=== PATIENT | female | born 1975 | race African-American/Black ===

== ENCOUNTER 2016-09-01 14:19 | Emergency (ER) | payer MEDICARE ==
[2014-12-29 11:01] VITALS: BMI 35.3
[~2016-09-01 14:19] MED LIST: ASPIRIN325 MG PO; CLONAZEPAM2 MG/TAB PO; HYDROCODON-ACE1 EAC7 PO; IBUPROFEN800 MG PO; KLONOPIN0.5 MG PO; KLONOPIN1 MG PO; LATUDA40 MG PO; NICODERM C1 PATCH .1 TRANSDERM; NORVASC2.5 MG PO; PRAVACHOL20 MG PO; SYNTHROID100 MCG PO; TOPAMAX100 MG PO; TRANDATE100 MG PO; ZESTRIL40 MG PO
== END 2016-09-01 16:47 | disposition home or self-care (01) ==
LOC: D.ER 14:19
DX: G89.29 Other chronic pain (principal); F12.10 Cannabis abuse, uncomplicated; F17.200 Nicotine dependence, unspecified, uncomplicated; Z86.73 Personal history of transient ischemic attack (TIA), and cerebral infarction without residual deficits; I10 Essential (primary) hypertension; K21.9 Gastro-esophageal reflux disease without esophagitis; E87.6 Hypokalemia; E03.9 Hypothyroidism, unspecified; N28.9 Disorder of kidney and ureter, unspecified; M26.609 Unspecified temporomandibular joint disorder, unspecified side

== ENCOUNTER 2016-09-11 06:22 | Emergency (ER) | payer MEDICARE ==
[2014-12-29 11:01] VITALS: BMI 35.3
== END 2016-09-11 07:50 | disposition home or self-care (01) ==
LOC: D.ER 06:22
DX: B85.3 Phthiriasis (principal); M79.605 Pain in left leg; M79.604 Pain in right leg; Z86.73 Personal history of transient ischemic attack (TIA), and cerebral infarction without residual deficits; I10 Essential (primary) hypertension; E87.6 Hypokalemia; E03.9 Hypothyroidism, unspecified; M26.609 Unspecified temporomandibular joint disorder, unspecified side; F17.200 Nicotine dependence, unspecified, uncomplicated

== ENCOUNTER 2017-01-31 12:29 | Emergency (ER) | payer MEDICARE ==
[2014-12-29 11:01] VITALS: BMI 35.3
== END 2017-01-31 16:23 | disposition home or self-care (01) ==
LOC: D.ER 12:29
DX: M25.512 Pain in left shoulder (principal); M19.90 Unspecified osteoarthritis, unspecified site; I10 Essential (primary) hypertension; G89.29 Other chronic pain; E03.9 Hypothyroidism, unspecified

== ENCOUNTER 2017-03-21 11:08 | Day surgery (SDC) | payer MEDICARE ==
[~2017-03-21] VITALS: Ht 160 cm; Wt 85.3 kg
[~2017-03-21 11:08] MED LIST changes: +LYRICA225 MG PO; +NORMODYNE / TR100 MG PO
[2017-03-21 12:24] VITALS: BP 121/98; Ht 160 cm; Wt 85.3 kg
[2017-03-21 12:31] LABS: BASOPHILS 0.5 % (0-2); EOSINOPHILS 1.2 % (0-7); HEMATOCRIT 36.7 % (36.0-48.0); IMMATURE GRANULOCYTES 0.2 % (0-5); LYMPHOCYTES 31.2 % (15-50); MCH 25.9 pg (26.0-34.0); MCHC 32.7 g/dL (31.0-37.0); MCV 79.1 fL (80.0-100.0); MEAN PLATELET VOLUME 10.4 fL (7.4-10.4); NEUTROPHILS 56.9 % (40-80); RBC 4.64 10x6/uL (4.00-5.40); WBC 4.3 10x3/uL (4.8-10.8)
[2017-03-21 12:47] LABS: PLATELET COUNT 242 10x3/uL (130-400)
--- NOTE | 2017-03-21 14:26 | NUR ---
14OO PT ASKED WHEN SURGERY IS, WHAT IS THE DELAY? 1415 JC LEIGH RN SPOKE WITH PT. AFTER SPEAKING WITH PT. PT. HAS CHOSEN TO CANCELL SURGERY FOR TODAY DUE TO THE TIME FRAME BEING STILL A WAYS OFF AND HER SPOUSE NEEDING TO GO TO WORK LATER AND NEEDING TO GO HOME TO REST BEFORE WORK, PT. STATED SHE SHOULD HAVE BEEN AN EARLIER SURGERY. 1422 IV DC'D WITH CATH INTACT, DC INSTS GIVEN, GETTING DRESSED 1430 DECLINED OFFER OF WC.
== END 2017-03-21 14:30 | disposition home or self-care (01) ==
LOC: D.OPS 11:08 → D.PAN 12:45 → D.OPS 12:45
PROVIDERS: Anesthesiology
DX: D50.9 Iron deficiency anemia, unspecified (principal); I10 Essential (primary) hypertension; E03.9 Hypothyroidism, unspecified; Z01.810 Encounter for preprocedural cardiovascular examination; Z01.811 Encounter for preprocedural respiratory examination; Z01.812 Encounter for preprocedural laboratory examination; Z53.9 Procedure and treatment not carried out, unspecified reason

== ENCOUNTER → 2017-04-26 15:35 | Outpatient (CLI) | payer MEDICARE ==
[2017-03-21 12:24] VITALS: BMI 33.3
[~2017-04-26 15:35] MED LIST changes: +ADDERALL 30 MG30 MG PO; +MOBIC7.5 MG PO
[2017-04-26 16:23] LABS: BASOPHILS 0.3 % (0-2); EOSINOPHILS 0.8 % (0-7); HEMATOCRIT 32.6 % (36.0-48.0); HEMOGLOBIN 10.7 g/dL (12-16); LYMPHOCYTES 37.3 % (15-50); MCH 26.5 pg (26.0-34.0); MCHC 32.8 g/dL (31.0-37.0); MCV 80.7 fL (80.0-100.0); MONOCYTES 7.3 % (2-11); NEUTROPHILS 54.3 % (40-80); PLATELET COUNT 272 10x3/uL (130-400); RBC 4.04 10x6/uL (4.00-5.40); RDW 19.2 % (11.5-14.5)
[2017-04-26 16:56] LABS: THYROID STIMULATING HORMONE 1.35 uIU/mL (0.36-3.74); URIC ACID 4.2 mg/dL (2.6-7.2)
[2017-04-26 17:00] LABS: C-REACTIVE PROTEIN < 0.2 mg/dL (0.0-0.9)
[2017-04-26 17:26] LABS: ERYTHROCYTE SEDIMENTATION RATE 20 mm/hr (0-20)
[2017-04-28 05:14] LABS: ESTRADIOL 87.1 pg/mL (()); FOLLICLE STIMULATING HORMONE 5.4 mIU/mL (())
[2017-04-30 08:09] LABS: ANA REFLEX - ANTICHROMATIN ABS <0.2 AI (0.0-0.9); ANA REFLEX - CENTROMERE B ABS <0.2 AI (0.0-0.9); ANA REFLEX - DBL STRANDED DNA 3 IU/mL (0-9); ANA REFLEX - DIRECT Positive (Negative); ANA REFLEX - JO-1 AB <0.2 AI (0.0-0.9); ANA REFLEX - RNP ANTIBODIES <0.2 AI (0.0-0.9); ANA REFLEX - SCL-70 <0.2 AI (0.0-0.9); ANA REFLEX - SJOGRENS AB SSA >8.0 AI (0.0-0.9); ANA REFLEX - SJOGRENS AB SSB <0.2 AI (0.0-0.9); ANA REFLEX - SMITH AB <0.2 AI (0.0-0.9)
== END | disposition home or self-care (01) ==
LOC: D.LAB 15:35
DX: N92.5 Other specified irregular menstruation (principal); N92.6 Irregular menstruation, unspecified

== ENCOUNTER 2017-05-16 05:56 | Day surgery (SDC) | payer MEDICARE ==
[2017-05-15 10:43] LABS: BASOPHILS 0.4 % (0-2); EOSINOPHILS 1.9 % (0-7); HEMATOCRIT 31.9 % (36.0-48.0); HEMOGLOBIN 10.3 g/dL (12-16); LYMPHOCYTES 31.2 % (15-50); MCH 26.1 pg (26.0-34.0); MCHC 32.3 g/dL (31.0-37.0); MEAN PLATELET VOLUME 9.8 fL (7.4-10.4); MONOCYTES 9.8 % (2-11); NEUTROPHILS 56.7 % (40-80); PLATELET COUNT 230 10x3/uL (130-400); RBC 3.94 10x6/uL (4.00-5.40); RDW 16.6 % (11.5-14.5); WBC 5.2 10x3/uL (4.8-10.8)
[~2017-05-16] VITALS: Ht 160 cm; Wt 88.9 kg
[2017-05-16 06:30] VITALS: BP 96/69; Ht 160 cm; Wt 88.9 kg
[2017-05-16] MEDS ORDERED: HYDROCODON-ACE1 EAC7 PO (08:45)
== END 2017-05-16 09:40 | disposition home or self-care (01) ==
LOC: D.OPS 05:56 → D.PAN 08:00 → D.OPS 08:00
PROVIDERS: Anesthesiology
DX: D50.9 Iron deficiency anemia, unspecified (principal); Z98.84 Bariatric surgery status; Z01.812 Encounter for preprocedural laboratory examination

== ENCOUNTER 2017-07-19 14:58 | Emergency (ER) | payer MEDICARE ==
[2017-05-16 06:30] VITALS: BMI 34.8
== END 2017-07-19 17:40 | disposition home or self-care (01) ==
LOC: D.ER 14:58
DX: J44.9 Chronic obstructive pulmonary disease, unspecified (principal); N39.0 Urinary tract infection, site not specified; I10 Essential (primary) hypertension

== ENCOUNTER 2018-05-02 09:15 | Emergency (ER) | payer MEDICARE ==
[~2018-05-02] VITALS: Ht 160 cm; Wt 98.2 kg
[2018-05-02 09:23] VITALS: Ht 160 cm; Wt 98.2 kg
[2018-05-02 11:32] LABS: APPEARANCE CLEAR (CLEAR); COLOR YELLOW (YELLOW); NITRITE NEGATIVE (NEGATIVE); PROTEIN NEGATIVE (NEGATIVE)
[2018-05-02 11:33] LABS: BILIRUBIN NEGATIVE (NEGATIVE); GLUCOSE NEGATIVE (NEGATIVE); KETONE NEGATIVE (NEGATIVE); UROBILINOGEN NORMAL (NORMAL)
[2018-05-02 11:40] LABS: HCG URINE NEGATIVE (NEGATIVE)
[2018-05-02] MEDS ORDERED: DIFLUCAN150 MG PO (12:10)
[2018-05-02 12:12] LABS: HIV 1 & 2- RAPID SCREEN NEGATIVE (NEGATIVE)
[2018-05-02 13:35] VITALS: BP 132/93
[2018-05-03 09:16] LABS: HEPATITIS C ANTIBODY <0.1 S/CO RAT (0.0-0.9)
[2018-05-04 22:07] LABS: CHLAMYDIA TRACHOMATIS, NAA Negative (Negative)
== END 2018-05-02 13:00 | disposition home or self-care (01) ==
LOC: D.ER 09:15
PROVIDERS: Family Medicine
DX: Z20.2 Contact with and (suspected) exposure to infections with a predominantly sexual mode of transmission (principal); Z86.73 Personal history of transient ischemic attack (TIA), and cerebral infarction without residual deficits; I10 Essential (primary) hypertension

== ENCOUNTER → 2018-11-05 17:46 | Outpatient (CLI) | payer MEDICARE ==
[2018-05-02 09:23] VITALS: BMI 38.3
[~2018-11-05 17:46] MED LIST changes: +DIFLUCAN150 MG PO
== END | disposition home or self-care (01) ==
LOC: D.MAMMO 10-30 13:15
PROVIDERS: ATTEND Family Medicine
DX: Z12.31 Encounter for screening mammogram for malignant neoplasm of breast (principal)

== ENCOUNTER 2018-12-10 14:00 | Outpatient (CLI) | payer MEDICARE ==
[2018-05-02 09:23] VITALS: BMI 38.3
== END 2018-12-10 14:30 | disposition home or self-care (01) ==
LOC: D.MAMMO 14:00
PROVIDERS: ATTEND Family Medicine
DX: R93.89 Abnormal findings on diagnostic imaging of other specified body structures (principal)